=== PATIENT | female | born 1995 | race Caucasian/White ===

== ENCOUNTER 2016-12-09 10:38 | Emergency (ER) | payer BC, MEDICAID ==
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
[2016-12-09 11:56] VITALS: BP 134/70
--- NOTE | 2016-12-10 13:52 | EKG REPORT ---
SEVERITY:- NORMAL ECG - SINUS RHYTHM : Confirmed by: Ruth Patel MD 10-Dec-2016 13:51:22
== END 2016-12-09 11:55 | disposition home or self-care (01) ==
LOC: ER 10:38
DX: R42 Dizziness and giddiness (principal)
CPT/HCPCS: 93005; 93010; 99284

== ENCOUNTER 2017-04-02 19:38 | Inpatient (IN) | payer MEDICAID ==
[2017-04-02] MEDS ORDERED: RINGERS SOLUTION,LACTATED 300 ML IV ONE (20:23)
[2017-04-02] MEDS ORDERED: OXYTOCIN/NORMAL SALINE 20 UNIT/1,000 ML RTUINJ IV PRN (20:23)
[2017-04-02] MEDS ORDERED: RINGERS SOLUTION,LACTATED 1,000 ML IV PRN (20:23)
[2017-04-02 20:47] LABS: APPEARANCE,URINE SLIGHTLY-CLOUDY; BILIRUBIN,URINE NEGATIVE (NEGATIVE); GLUCOSE, URINE NEGATIVE (NEGATIVE); KETONES,URINE NEGATIVE (NEGATIVE); LEUKOCYTE ESTERASE,URINE NEGATIVE (NEGATIVE); NITRITE,URINE NEGATIVE (NEGATIVE); PROTEIN,URINE NEGATIVE (NEGATIVE); URINE SPECIFIC GRAVITY 1.028
[2017-04-02 20:50] LABS: ABSOLUTE EOSINOPHILS # (AUTO) 0.3 10^3/uL (0.0-0.6); ABSOLUTE MONOCYTES (AUTO) 0.6 10^3/uL (0.1-1.4); ABSOLUTE NEUT (AUTO) 7.7 10^3/uL (1.7-8.2); BASOPHILS % (AUTO) 0.3 % (0-2); EOSINOPHILS % (AUTO) 2.4 % (0-6); HEMATOCRIT 31.5 % (36.0-47.0); HEMOGLOBIN 10.7 g/dL (12.0-15.5); HGB HCT DIFFERENCE 0.6; LYMPHOCYTES % (AUTO) 25.7 % (13-45); MEAN CORPUSCULAR HEMOGLOBIN 29.2 pg (27.0-33.4); MEAN CORPUSCULAR HGB CONC 33.9 g/dL (32.0-36.0); MEAN CORPUSCULAR VOLUME 86 fl (80-97); MONOCYTES % (AUTO) 5.2 % (3-13); RED BLOOD COUNT 3.67 10^6/uL (3.72-5.28); RED CELL DISTRIBUTION WIDTH 15.1 % (11.5-14.0); SEGMENTED NEUTROPHILS % (AUTO) 66.4 % (42-78); WHITE BLOOD COUNT 11.7 10^3/uL (4.0-10.5)
[2017-04-02] MEDS ORDERED: OXYTOCIN/NORMAL SALINE 20 UNIT/1,000 ML RTUINJ ONE ×2 (20:59→21:58)
[2017-04-02 21:02] LABS: URINE BARBITURATES SCREEN NEGATIVE; URINE METHADONE SCREEN NEGATIVE; URINE OPIATES LOW NEGATIVE; URINE PHENCYCLIDINE SCREEN NEGATIVE
[2017-04-02] MEDS ORDERED: EPHEDRINE SULFATE INJ 50 MG/1 ML AMPULE ONE (21:54)
[2017-04-02] MEDS ORDERED: BUPIVACAINE HCL 0.25 % INJ/PF (2.5 MG/1 ML) 30 ML VIAL ONE (21:54)
[2017-04-02] MEDS ORDERED: FENTANYL/BUPIVACAINE/NS/PF 200 MCG/100 ML RTUINJ EPI ONE (21:54)
[2017-04-02] MEDS ORDERED: MISOPROSTOL 0.2 MG TABLET ONE (21:57)
[2017-04-02] MEDS ORDERED: LIDOCAINE 1% INJ-PF (10 MG/ML) 30 ML SDV ONE (21:57)
[2017-04-03] MEDS ORDERED: IBUPROFEN 800 MG TABLET ONE (00:57)
--- NOTE | 2017-04-03 02:02 | Delivery Summary ---
Del Sum A-C Datetime Report Generated by CPN: 04/03/2017 02:02 DELIVERY PERSONNEL DELIVERY PERSONNEL: [id number] Delivery Doctor:: Genoveva Maloney MD Labor and Delivery Nurse:: Luna Aguiar RN Nursery Nurse:: Radha Pineda RN Shore Worker/TWENTY ONE DEALER: Coleen Get, ST MATERNAL INFORMATION Delivery Anesthesia: Epidural Medications After Delivery: Pitocin Bolus-Please Comment; Pitocin Drip 20 Units/1000ml NSS Estimated Blood Loss (ml): 250 Maternal Complications: None Provider Comments: VFI delivered in ENRIKE presentation with no nuchal cord. Shoulders and body delivered without difficulty. cord doubly clamped and cut and to maternal abdomen for NRP. long cord with true knot noted. Placenta delivered intact spontaneously. FF at U. Good hemostasis post repair. Mother and baby stable upon provider leaving the room. LABOR SUMMARY EDC: 03/25/2017 00:00 No. Babies in Womb: 1 Attempted: No Labor Anesthesia: Epidural LABOR INFORMATION Reason for Induction: Post Dates Onset of Labor: 04/02/2017 21:18 Complete Dilatation: 04/03/2017 00:02 Oxytocin: Induction Group B Beta Strep: Negative Antibiotics # of Doses: 0 Antibiotics Time of Last Dose: N/A Name of Antibiotic Given: N/A Steroids Given: None Reason Steroids Not Administered: Not Applicable MEMBRANES Membranes Rupture Method: Spontaneous Rupture of Membranes: 04/02/2017 23:30 Length of Rupture (hr): 0.77 Amniotic Fluid Color: Clear Amniotic Fluid Amount: Moderate Amniotic Fluid Odor: Normal STAGES OF LABOR Stage 1 hr: 2 Stage 1 min: 44 Stage 2 hr: 0 Stage 2 min: 14 Stage 3 hr: 0 Stage 3 min: 4 Total Time in Labor hr: 3 Total Time in Labor min: 2 VAGINAL DELIVERY Episiotomy: None Laceration #1: Vaginal Laceration Extension #1: N/A Laceration Repair: Yes Laceration Repair Note: superficial vaginal laceration repaired for hemostasis with figure of right suture times one Sponge Count Correct: Yes Sharps Count Correct: Yes CSECTION DELIVERY Primary Indication: N/A Secondary Indication: N/A CSection Incidence: N/A Labor: N/A Elective: N/A CSection Incision: N/A BABY A INFORMATION Delivery Date/Time: 04/03/2017 00:16 Method of Delivery: Vaginal Born in Route : No : N/A Forceps: N/A Vacuum Extraction: N/A Shoulder Dystocia : No PRESENTATION/POSITION BABY A Presentation: Cephalic Cephalic Presentation: Vertex Vertex Position: Left Occipital Anterior Breech Presentation: N/A PLACENTA INFORMATION BABY A Placenta Delivery Time : 04/03/2017 00:20 Placenta Method of Delivery: Spontaneous Placenta Status: Delivered SCORES BABY A Heart Rate 1 min: >100 bpm Resp Effort 1 min: Good Cry Reflex Irritability 1 min: Cough or Sneeze or Pulls Away Muscle Tone 1 min: Active Motion Color 1 min: Blue/Pale SCORE 1 MIN: 8 Heart Rate 5 min: >100 bpm Resp Effort 5 min: Good Cry Reflex Irritability 5 min: Cough or Sneeze or Pulls Away Muscle Tone 5 min: Active Motion Color 5 min: Body [place], Extremities Blue SCORE 5 MIN: 9 INFORMATION BABY A Gestational Age at Delivery: 40.2 Gestational Status: Full Term- 39- 40.6 Weeks Infant Outcome : Liveborn Infant Condition : Stable Infant Sex: Female IDENTIFICATION BABY A Infant Verification Date/Time: 04/02/2017 00:47 ID Band Number: [id number] Mother's Name Verified: Yes RN Verifying Infant: Luna Atalek, Lisa Jackson WEIGHT/LENGTH BABY A Birthweight (gm): 3669 Infant Weight (lb): 8 Weight (oz): 1 Length (in): 21.00 Length (cm): 53.34 CORD INFORMATION BABY A No. Cord Vessels: 3 Nuchal Cord : N/A True Knot: 1 Cord Blood Taken: Yes-For Eval (Mom's Blood Type - or O+) Suction: Mouth; Nose ASSESSMENT BABY A Infant Complications: None Physical Findings at Delivery: Within Normal Limits Respirations: Appears Normal Skin to Skin: Yes Adjunct Faculty/ALS Called : No Care By: R Pineda, RNC Transferred To: Remains with Mother BABY B INFORMATION : N/A SIGNATURES Signature: Electronically signed by Genoveva Maloney MD ([facility]) on 04/03/2017 at 01:39 with User ID: [email or web address]
--- NOTE | 2017-04-03 02:18 | Admission Physical ---
Datetime Report Generated by CPN: 04/03/2017 02:17 CURRENT ADMISSION Chief Complaint: Scheduled Induction of Labor Indication for Induction: Post Dates Indication for Induction: Term, Intrauterine ; No Active Labor; Intact Membranes; Induction of Labor Admit Plan: Admit to Unit; Initiate Labor Protocol ALLERGIES Medication Allergies: No Medication Allergies: No Known Allergies (04/02/2017) Medication Allergies: No Known Allergies (12/09/2016) Latex: No Latex Allergies Food Allergies: none Environmental Allergies: none OBSTETRICAL HISTORY EDC: 03/25/2017 00:00 : 2 Para: 1 Term: 1 : 0 SAB: 1 IAB: 1 Ectopic: 0 Livin Cesareans: 0 VBACs: 0 Multiple Births: 0 Gestational Diabetes: No Rh Sensitization: No Incompetent Cervix: No KAREN: No Infertility: No ART Treatment: No Uterine Anomaly: No IUGR: No Hx Previous C/S: No Macrosomia: No Hx Loss/Stillborn: No PIH: No Hx : No Placenta Previa/Abruption: No Depression/PP Depression: No PTL/PROM: No Post Hemorrhage: No Current Procedures: Ultrasound; NST Obstetrical History Comments: G1: female 2015 approx 8 pounds G2: Current SEE RECORDS Alcohol: No Marijuana : No Cocaine: No Other Illicit Drugs: No Cigarettes: Never Smoker. [id number] MEDICAL HISTORY Diabetes: No Blood Transfusion: No Pulmonary Disease (Asthma, TB): No Breast Disease: No Hypertension: No Plate Grinder Surgery: No Heart Disease: No Hosp/Surgery: Yes Autoimmune Disorder: No Anesthetic Complications: No Kidney Disease: No Abnormal Pap Smear: No Neuro/Epilepsy: No Psychiatric Disorders: No Other Medical Diseases: No Hepatitis/Liver Disease: No Significant Family History: No Varicosities/Phlebitis: No Trauma/Violence : No Thyroid Dysfunction: No Medical History Comments: childbirth INFECTIOUS HISTORY Gonorrhea: No Genital Herpes: No Chlamydia: No Tuberculosis: No Syphilis: No Hepatitis: No HIV/AIDS Exposure: No Rash or Viral Illness: No HPV: No PHYSICAL EXAM General: Normal HEENT: Normal Neurologic: Normal Thyroid: Normal Heart: Normal Lungs: Normal Breast: Deferred Back: Normal Abdomen: Normal Genitourinary Exam: Normal Extremities: Normal DTRs: Normal Pelvic Type: Adequate Vital Signs: Reviewed VAGINAL EXAM Dilatation: 4 Effacement: 70 Station: -2 Contraction Comments: q 6min MEMBRANES Membranes: Intact Amniotic Fluid Color: Clear FETUS A EGA: 41.1 Monitoring: External US FHR- Baseline: 155 Variability: Moderate 6-25bpm Accelerations: 15X15 Decelerations: None FHR Category: Category I Estimated Weight (gm): 3894 Presentation: Vertex Admit Comment: 21yo at 41+1ega presents for scheduled IOL. 2cm at the office last week. Cvx on exam today is 4/70/-2. c/b Morbid obesity with BMI of 44. ECHO normal. Failed Early GTT - passed 3 hr GTT. also complicated by peridontal disease. Pelvis proven to 7#5oz. Pt desires epidural for pain management. CAT I FHR tracing. Pelvis adequate for RONALD and EFW approx 8#9oz. GBS negative. Will ensure SCDs intra and PLANS FOR LABOR AND DELIVERY Labor and Delivery: None Pain Management: Epidural Feeding Preference: Breast Benefit of Breast Feed Discussed: Yes Circumcision: N/A INFORMED CONSENT Informed Consent Obtained: Vaginal Delivery; Induction of Labor; Risks, Benefits and Alternatives Discussed Signature: with User ID: [email or web address]
[2017-04-03] MEDS ORDERED: PSEUDOEPHEDRINE HCL 30 MG TABLET PO PRN (03:26)
[2017-04-03] MEDS ORDERED: ACETAMINOPHEN WITH CODEINE #3 TABLET PO PRN ×2 (03:26)
[2017-04-03] MEDS ORDERED: PROMETHAZINE HCL 25 MG TABLET PO PRN (03:26)
[2017-04-03] MEDS ORDERED: MEASLES,MUMPS&RUBELLA VACC/PF 0.5 ML VIAL SUBCUT PRN (03:26)
[2017-04-03] MEDS ORDERED: ZOLPIDEM TARTRATE 5 MG TABLET PO PRN (03:26)
[2017-04-03] MEDS ORDERED: NA PHOS,M-B/NA PHOS,DI-BA (ADULT) 133 ML ENEMA PR PRN (03:26)
[2017-04-03] MEDS ORDERED: DIPH/PERTUSS(ACELL)/TETANUS VAC/PF 0.5 ML SYR (>=10YO) IM PRN (03:26)
[2017-04-03] MEDS ORDERED: BENZOCAINE/MENTHOL AEROSOL SPRAY 56 ML TOP PRN (03:26)
[2017-04-03] MEDS ORDERED: DIBUCAINE 1% OINTMENT 28 GM TP PRN (03:26)
[2017-04-03] MEDS ORDERED: PROMETHAZINE HCL INJ 25 MG/1 ML VIAL IV PRN (03:26)
[2017-04-03] MEDS ORDERED: PROMETHAZINE HCL 25 MG SUPP.RECT PR PRN (03:26)
[2017-04-03] MEDS ORDERED: ACETAMINOPHEN 650 MG SUPP.RECT PR PRN (03:26)
[2017-04-03] MEDS ORDERED: MAGNESIUM HYDROXIDE SUSP 30 ML UDCUP PO PRN (03:26)
[2017-04-03] MEDS ORDERED: GLYCERIN/WITCH HAZEL LEAF 1 EACH MED..PAD TP PRN (03:26)
[2017-04-03] MEDS ORDERED: DIPHENHYDRAMINE HCL 25 MG CAPSULE PO PRN (03:26)
[2017-04-03] MEDS ORDERED: OXYTOCIN/NORMAL SALINE 1,000 ML IV PRN (03:26)
[2017-04-03] MEDS ORDERED: MISOPROSTOL 0.2 MG TABLET PR ONE (03:33)
[2017-04-03] MEDS: IBUPROFEN 800 MG TABLET PO SCH ×3 (05:58→21:57)
[2017-04-03] MEDS ORDERED: PRENATAL VITAMIN W DHA CAPSULE PO ONE (09:14)
[2017-04-03] MEDS: DOCUSATE SODIUM 100 MG CAPSULE PO SCH ×2 (09:17→17:43)
[2017-04-03] MEDS: SENNOSIDES/DOCUSATE 8.6-50 MG 1 EACH TABLET PO SCH (09:18)
[2017-04-03] MEDS: FERROUS SULFATE 325 MG TABLET PO SCH ×2 (09:18→17:42)
[2017-04-03] MEDS: FAMOTIDINE 20 MG TABLET PO SCH ×2 (09:18→21:57)
[2017-04-03] MEDS: PRENATAL VITAMIN W DHA CAPSULE PO SCH (09:38)
--- NOTE | 2017-04-03 09:56 | PDOC PROGRESS REPORT ---
Subjective-OB Subjective: Post Delivery Day: 1 21 year old. Denies any needs at this time, states lochia is stable, pain well controlled, voiding without difficulty. Physical Exam (OB) Vital Signs: Temp Pulse Resp BP Pulse Ox 98.2 F 84 16 132/82 H 99 04/03/17 08:45 04/03/17 08:45 04/03/17 08:45 04/03/17 08:45 04/03/17 08:45 Intake & Output 04/02/17 04/03/17 04/04/17 06:59 06:59 06:59 Weight 140 kg - Lochia Lochia Amount: Small 10-25 ml Lochia Color: Rubra/Red - Abdomen Description: Soft, Round Hernia Present: No Fundal Description: Firm, Midline Fundal Height: u/u - u/2 Objective-Diagnostic Laboratory: 04/02/17 20:38 04/02/17 04/02/17 04/02/17 19:48 20:38 20:38 WBC 11.7 H RBC 3.67 L Hgb 10.7 L Hct 31.5 L MCV 86 MCH 29.2 MCHC 33.9 RDW 15.1 H Plt Count 249 Seg Neutrophils % 66.4 Lymphocytes % 25.7 Monocytes % 5.2 Eosinophils % 2.4 Basophils % 0.3 Absolute Neutrophils 7.7 Absolute Lymphocytes 3.0 Absolute Monocytes 0.6 Absolute Eosinophils 0.3 Absolute Basophils 0.0 Urine Color YELLOW Urine Appearance SLIGHTLY-CLOUDY Urine pH 6.0 Ur Specific [place] 1.028 Urine Protein NEGATIVE Urine Glucose (UA) NEGATIVE Urine Ketones NEGATIVE Urine Blood SMALL H Urine Nitrite NEGATIVE Ur Leukocyte Esterase NEGATIVE Blood Type A NEGATIVE Antibody Screen NEGATIVE Assessment and Plan(PN) - Assessment and Plan (1) Acute blood loss anemia Is this a current diagnosis for this admission?: Yes Plan: ferrous sulfate increase dietary iron (2) Gestational hypertension Qualifiers: Trimester: third trimester Qualified Code(s): O13.3 - Gestational [ -induced] hypertension without significant proteinuria, third trimester Is this a current diagnosis for this admission?: Yes (3) Vaginal delivery Is this a current diagnosis for this admission?: Yes Plan: routine pp care - Time Spent with Patient Time with patient: Less than 15 minutes Critical Time spent with patient: Less than 15 minutes Medications reviewed and adjusted accordingly: Yes - Disposition Anticipated Discharge: Home Within: within 24 hours
[2017-04-03] MEDS ORDERED: PRENATAL VITAMIN W-O CA NO5/FE FUMARATE/FA CAPSULE PO SCH (10:00)
[2017-04-04] MEDS: IBUPROFEN 800 MG TABLET PO SCH ×3 (05:35→22:14)
[2017-04-04 08:08] LABS: HEMATOCRIT 28.6 % (36.0-47.0); HEMOGLOBIN 9.5 g/dL (12.0-15.5); HGB HCT DIFFERENCE -0.1; MEAN CORPUSCULAR HEMOGLOBIN 28.9 pg (27.0-33.4); MEAN CORPUSCULAR HGB CONC 33.1 g/dL (32.0-36.0); MEAN CORPUSCULAR VOLUME 87 fl (80-97); RED BLOOD COUNT 3.29 10^6/uL (3.72-5.28); RED CELL DISTRIBUTION WIDTH 15.7 % (11.5-14.0); WHITE BLOOD COUNT 9.5 10^3/uL (4.0-10.5)
[2017-04-04] MEDS: SENNOSIDES/DOCUSATE 8.6-50 MG 1 EACH TABLET PO SCH (09:14)
[2017-04-04] MEDS: FERROUS SULFATE 325 MG TABLET PO SCH ×2 (09:14→17:53)
[2017-04-04] MEDS: FAMOTIDINE 20 MG TABLET PO SCH ×2 (09:14→22:14)
[2017-04-04] MEDS: DOCUSATE SODIUM 100 MG CAPSULE PO SCH ×2 (09:14→17:53)
[2017-04-04] MEDS: PRENATAL VITAMIN W DHA CAPSULE PO SCH (09:15)
--- NOTE | 2017-04-04 10:31 | PDOC PROGRESS REPORT ---
Subjective-OB Subjective: Post Delivery Day: 2 21 year old. Denies any needs at this time, states lochia is stable , pain well controlled, voiding without difficulty. Physical Exam (OB) Vital Signs: Temp Pulse Resp BP Pulse Ox 98.2 F 75 20 133/74 H 99 04/04/17 07:33 04/04/17 07:33 04/04/17 07:33 04/04/17 07:33 04/04/17 07:33 Intake & Output 04/03/17 04/04/17 04/05/17 06:59 06:59 06:59 Intake Total 800 Balance 800 Weight 140 kg - Lochia Lochia Amount: Scant < 10 ml Lochia Color: Rubra/Red - Abdomen Description: Soft, Round Hernia Present: No Fundal Description: Firm, Midline Fundal Height: u/u - u/2 Objective-Diagnostic Laboratory: 04/04/17 07:20 04/04/17 04/04/17 07:20 07:20 WBC 9.5 RBC 3.29 L Hgb 9.5 L Hct 28.6 L MCV 87 MCH 28.9 MCHC 33.1 RDW 15.7 H Plt Count 205 Blood Type A NEGATIVE Assessment and Plan(PN) - Assessment and Plan (1) Acute blood loss anemia Is this a current diagnosis for this admission?: Yes Plan: ferrous sulfate increase dietary iron (2) Gestational hypertension Qualifiers: Trimester: third trimester Qualified Code(s): O13.3 - Gestational [ -induced] hypertension without significant proteinuria, third trimester Is this a current diagnosis for this admission?: Yes Plan: montior bp and s/sx (3) Vaginal delivery Is this a current diagnosis for this admission?: Yes Plan: routine pp care - Time Spent with Patient Time with patient: Less than 15 minutes Critical Time spent with patient: Less than 15 minutes Medications reviewed and adjusted accordingly: Yes - Disposition Anticipated Discharge: Home Within: within 24 hours
[2017-04-05] MEDS: IBUPROFEN 800 MG TABLET PO SCH ×2 (06:16→13:21)
[2017-04-05 08:15] VITALS: BP 132/74
[2017-04-05] MEDS: SENNOSIDES/DOCUSATE 8.6-50 MG 1 EACH TABLET PO SCH (09:21)
[2017-04-05] MEDS: PRENATAL VITAMIN W DHA CAPSULE PO SCH (09:21)
[2017-04-05] MEDS: DOCUSATE SODIUM 100 MG CAPSULE PO SCH (09:21)
[2017-04-05] MEDS: FERROUS SULFATE 325 MG TABLET PO SCH (09:21)
[2017-04-05] MEDS: FAMOTIDINE 20 MG TABLET PO SCH (09:22)
--- NOTE | 2017-04-05 12:57 | PDOC DISCHARGE SUMMARY ---
Final Diagnosis Discharge Date: 04/05/17 - Final Diagnosis (1) Anemia complicating , third trimester Is this a current diagnosis for this admission?: Yes (2) Gestational hypertension Is this a current diagnosis for this admission?: Yes (3) Vaginal delivery Is this a current diagnosis for this admission?: Yes Discharge Data - Discharge Medication Home Medications: Vitamin [-U Multiple Vitamin Capsule] 1 cap PO DAILY #0 capsule 06/24/15 Docusate Sodium [Colace 100 mg Capsule] 100 mg PO BID #60 capsule 04/05/17 Ferrous Sulfate [Feosol 325 mg Tablet] 325 mg PO BID #60 tablet 04/05/17 Ibuprofen [Motrin 800 mg Tablet] 800 mg PO Q8HP PRN #30 tablet 04/05/17 Reason(s) for Admission: Induction of Labor Procedures: NST, Ultrasound Intrapartum Procedure(s): Spontaneous Vaginal Delivery Complication(s): Laceration-Vaginal Laceration-Degree: 1st - Diagnosis Test Laboratory: Temp Pulse Resp BP Pulse Ox 98.1 F 82 20 132/74 H 98 04/05/17 10:41 04/05/17 10:41 04/05/17 10:41 04/05/17 07:28 04/05/17 10:41 04/02/17 04/02/17 04/04/17 19:48 20:38 07:20 RBC 3.67 L 3.29 L Hgb 10.7 L 9.5 L Hct 31.5 L 28.6 L Urine Opiates Screen NEGATIVE - Discharge information/Instructions Discharge Activity: Activity As Tolerated, Balance Activity w/Rest, No Lifting Over 10 Pounds, Pelvic Rest, Slowly Increase Activity, No tub bath Discharge Diet: As Tolerated, Regular Disposition: HOME, SELF-CARE Follow up with: [facility] in: 5, Days - blood pressure check
== END 2017-04-05 14:16 | disposition home or self-care (01) | DRG 775 ==
LOC: LR 19:38 → 2S 04-03 02:16
PROVIDERS: ADMIT Student in an Organized Health Care Education/Training Program; ATTEND Student in an Organized Health Care Education/Training Program
PROC: 10E0XZZ Delivery of Products of Conception, External Approach (ICD-10-PCS; 2017-04-02)
PROC: 4A1HXCZ Monitoring of Products of Conception, Cardiac Rate, External Approach (ICD-10-PCS; 2017-04-02)
PROC: 10E0XZZ Delivery of Products of Conception, External Approach (ICD-10-PCS; principal; 2017-04-03)
PROC: 0HQ9XZZ Repair Perineum Skin, External Approach (ICD-10-PCS; 2017-04-03)
PROC: 3E0234Z Introduction of Serum, Toxoid and Vaccine into Muscle, Percutaneous Approach (ICD-10-PCS; 2017-04-04)
DX: O13.4 Gestational [pregnancy-induced] hypertension without significant proteinuria, complicating childbirth (principal); D62 Acute posthemorrhagic anemia; Z68.41 Body mass index [BMI] 40.0-44.9, adult; O99.02 Anemia complicating childbirth; O70.0 First degree perineal laceration during delivery; O48.0 Post-term pregnancy; O26.893 Other specified pregnancy related conditions, third trimester; O69.2XX0 Labor and delivery complicated by other cord entanglement, with compression, not applicable or unspecified; Z67.11 Type A blood, Rh negative; E66.01 Morbid (severe) obesity due to excess calories; Z3A.41 41 weeks gestation of pregnancy; Z37.0 Single live birth
CPT/HCPCS: 36415; 80307; 81005; 85025; 85027; 85461; 86592; 86850; 86900; 86901; J2590; J2790; J3490

== ENCOUNTER 2019-01-06 14:32 | Outpatient (CLI) | payer MEDICAID ==
--- NOTE | 2019-01-06 15:10 | Non Stress Test Report ---
Non Stress Test Datetime Report Generated by CPN: 01/06/2019 15:10 DEMOGRAPHIC EGA NST: 35.4 INDICATION Indication for Study: Ordered by Provider MONITORING Monitor Explained: Monitor Explained; Test Explained; Patient Verbalized Understanding Time on Monitor: 01/06/2019 14:41 Time off Monitor: 01/06/2019 15:04 NST Duration: 23 NST INTERVENTIONS NST Interventions: PO Hydration Physician Notified NST: K.Yen, CNM BABY A: [id number] BABY A Movement : Present Contraction Frequency : 0 FHR Baseline : 150 Accelerations : 15X15 Decelerations : None Variability : Moderate 6-25bpm NST Review: Meets Criteria for Reactive NST NST Review and Verified By : Janette Pop RNC NST Results: Reactive NST REPORT Report Trigger: Send Report
== END 2019-01-06 15:06 | disposition home or self-care (01) ==
LOC: LC 14:32
PROVIDERS: ATTEND Obstetrics & Gynecology
DX: Z34.93 Encounter for supervision of normal pregnancy, unspecified, third trimester (principal)
CPT/HCPCS: 59025

== ENCOUNTER 2019-01-16 09:42 | Inpatient (IN) | payer MEDICAID ==
[2019-01-16] MEDS ORDERED: RINGERS SOLUTION,LACTATED 1,000 ML IV PRN (10:14)
[2019-01-16 10:22] LABS: ABSOLUTE LYMPHOCYTES (AUTO) 1.2 10^3/uL (0.5-4.7); ABSOLUTE MONOCYTES (AUTO) 0.3 10^3/uL (0.1-1.4); ABSOLUTE NEUT (AUTO) 4.6 10^3/uL (1.7-8.2); BASOPHILS % (AUTO) 0.4 % (0-2); EOSINOPHILS % (AUTO) 0.2 % (0-6); HEMATOCRIT 34.6 % (36.0-47.0); HEMOGLOBIN 11.7 g/dL (12.0-15.5); MEAN CORPUSCULAR HEMOGLOBIN 29.5 pg (27.0-33.4); MEAN CORPUSCULAR HGB CONC 33.8 g/dL (32.0-36.0); MEAN CORPUSCULAR VOLUME 87 fl (80-97); MONOCYTES % (AUTO) 4.9 % (3-13); PLATELET COUNT 186 10^3/uL (150-450); RED BLOOD COUNT 3.96 10^6/uL (3.72-5.28); RED CELL DISTRIBUTION WIDTH 15.1 % (11.5-14.0); SEGMENTED NEUTROPHILS % (AUTO) 74.5 % (42-78); TOTAL CELLS COUNTED % (AUTO) 100 %; WHITE BLOOD COUNT 6.1 10^3/uL (4.0-10.5)
[2019-01-16 10:33] LABS: APPEARANCE,URINE SLIGHTLY-CLOUDY; BILIRUBIN,URINE NEGATIVE (NEGATIVE); COLOR,URINE YELLOW; GLUCOSE, URINE NEGATIVE (NEGATIVE); KETONES,URINE NEGATIVE (NEGATIVE); LEUKOCYTE ESTERASE,URINE SMALL (NEGATIVE); NITRITE,URINE NEGATIVE (NEGATIVE); PROTEIN,URINE NEGATIVE (NEGATIVE); URINE SPECIFIC GRAVITY 1.013; UROBILINOGEN,URINE NEGATIVE mg/dL (<2.0)
[2019-01-16 10:47] LABS: ALBUMIN 3.6 g/dL (3.5-5.0); ALKALINE PHOSPHATASE 117 U/L (38-126); ANION GAP 10 (5-19); ASPARTATE AMINO TRANSFERASE 27 U/L (14-36); BILIRUBIN,DIRECT 0.3 mg/dL (0.0-0.4); BILIRUBIN,TOTAL 0.4 mg/dL (0.2-1.3); BLOOD UREA NITROGEN 5 mg/dL (7-20); CARBON DIOXIDE 22 mmol/L (22-30); CHLORIDE 103 mmol/L (98-107); GLUCOSE 116 mg/dL (75-110); POTASSIUM 3.9 mmol/L (3.6-5.0); URIC ACID 4.9 mg/dL (2.5-6.2)
[2019-01-16 11:00] LABS: URINE AMPHETAMINES SCREEN NEGATIVE; URINE BARBITURATES SCREEN NEGATIVE; URINE BENZODIAZEPINES SCREEN NEGATIVE; URINE COCAINE SCREEN NEGATIVE; URINE MARIJUANA (THC) SCREEN NEGATIVE; URINE METHADONE SCREEN NEGATIVE; URINE PHENCYCLIDINE SCREEN NEGATIVE
[2019-01-16] MEDS ORDERED: OXYTOCIN/NORMAL SALINE 20 UNIT/1,000 ML RTUINJ ONE ×2 (12:25→22:01)
[2019-01-16] MEDS ORDERED: LIDOCAINE 1% INJ-PF (10 MG/ML) 30 ML SDV ONE (12:25)
[2019-01-16] MEDS ORDERED: MISOPROSTOL 0.2 MG TABLET ONE (12:25)
[2019-01-16] MEDS ORDERED: OXYTOCIN 10 UNIT/ML VIAL ONE (12:25)
[2019-01-16] MEDS ORDERED: OXYTOCIN/NORMAL SALINE 20 UNIT/1,000 ML RTUINJ IV PRN ×2 (12:36→21:38)
--- NOTE | 2019-01-16 13:11 | Admission Physical ---
Datetime Report Generated by CPN: 01/16/2019 13:10 CURRENT ADMISSION Chief Complaint: Scheduled Induction of Labor Indication for Induction: Other Indication for Induction- Other: cholestasis of Admit Impression : Term, Intrauterine Admit Plan: Admit to Unit; Initiate Labor Induction Protocol ALLERGIES Medication Allergies: No Medication Allergies: No Known Allergies (04/02/2017) Latex: No Latex Allergies OBSTETRICAL HISTORY EDC: 02/06/2019 00:00 : 3 Para: 2 Gestational Diabetes: No Rh Sensitization: No Incompetent Cervix: No KAREN: No Infertility: No ART Treatment: No Uterine Anomaly: No IUGR: No Hx Previous C/S: No Macrosomia: No Hx Loss/Stillborn: No PIH: No Hx : No Placenta Previa/Abruption: No Depression/PP Depression: No PTL/PROM: No Post Hemorrhage: No Current Procedures: Ultrasound; NST Obstetrical History Comments: G1-06/22/15, full term vaginal G2-04/03/17, full term, vaginal G3-Current SEE RECORDS Alcohol: No Marijuana : No Cocaine: No Other Illicit Drugs: No Cigarettes: Never Smoker. [id number] MEDICAL HISTORY Diabetes: No Blood Transfusion: No Pulmonary Disease (Asthma, TB): No Breast Disease: No Hypertension: No Drug Safety Specialist Surgery: No Heart Disease: No Hosp/Surgery: No Autoimmune Disorder: No Anesthetic Complications: No Kidney Disease: No Abnormal Pap Smear: No Neuro/Epilepsy: No Psychiatric Disorders: No Other Medical Diseases: No Hepatitis/Liver Disease: No Significant Family History: No Varicosities/Phlebitis: No Trauma/Violence : No Thyroid Dysfunction: No INFECTIOUS HISTORY Gonorrhea: No Genital Herpes: No Chlamydia: No Tuberculosis: No Syphilis: No Hepatitis: No HIV/AIDS Exposure: No Rash or Viral Illness: No HPV: No PHYSICAL EXAM General: Normal HEENT: Normal Neurologic: Normal Thyroid: Deferred Heart: Normal Lungs: Normal Breast: Deferred Back: Normal Abdomen: Normal Genitourinary Exam: Normal Extremities: Normal DTRs: Deferred Pelvic Type: Adequate Physical Exam Comments: pelvis proven to 8#1 Vital Signs: Reviewed VAGINAL EXAM Dilatation: 1 Effacement: 50 Station: -2 Contraction Comments: rare MEMBRANES Membranes: Intact FETUS A EGA: 37.0 Monitoring: External US FHR- Baseline: 135 Variability: Moderate 6-25bpm Accelerations: 15X15 Decelerations: None FHR Category: Category I Estimated Weight (gm): 3200 Presentation: Vertex Admit Comment: at 37w by LMP c/w 12w sono admitted for cholestasis of at term, GBS neg, Rh neg. parikh balloon placed without difficulty. pitocin started. P: continue IOL, anticipate PLANS FOR LABOR AND DELIVERY Labor and Delivery: None Pain Management: Natural Feeding Preference: Breast Benefit of Breast Feed Discussed: Yes Circumcision: N/A INFORMED CONSENT Assignment: Rogelio Fraser MD Signature: with User ID: [email or web address] : with User ID: [email or web address]
[2019-01-16] MEDS ORDERED: MEASLES,MUMPS&RUBELLA VACC/PF 0.5 ML VIAL SUBCUT PRN (21:38)
[2019-01-16] MEDS ORDERED: ACETAMINOPHEN 650 MG SUPP.RECT PR PRN (21:38)
[2019-01-16] MEDS ORDERED: ACETAMINOPHEN WITH CODEINE #3 TABLET PO PRN (21:38)
[2019-01-16] MEDS ORDERED: BENZOCAINE/MENTHOL AEROSOL SPRAY 56 ML TOP PRN (21:38)
[2019-01-16] MEDS ORDERED: GLYCERIN/WITCH HAZEL LEAF 1 EACH MED..WIPE TP PRN (21:38)
[2019-01-16] MEDS ORDERED: PROMETHAZINE HCL INJ 25 MG/1 ML VIAL IV PRN (21:38)
[2019-01-16] MEDS ORDERED: PROMETHAZINE HCL 25 MG TABLET PO PRN (21:38)
[2019-01-16] MEDS ORDERED: PROMETHAZINE HCL 25 MG SUPP.RECT PR PRN (21:38)
[2019-01-16] MEDS ORDERED: NA PHOS,M-B/NA PHOS,DI-BA (ADULT) 133 ML ENEMA PR PRN (21:38)
[2019-01-16] MEDS ORDERED: DIPH/PERTUSS(ACELL)/TETANUS VAC/PF 0.5 ML SYR (>=10YO) IM PRN (21:38)
[2019-01-16] MEDS ORDERED: PSEUDOEPHEDRINE HCL 30 MG TABLET PO PRN (21:38)
[2019-01-16] MEDS ORDERED: MAGNESIUM HYDROXIDE SUSP 30 ML UDCUP PO PRN (21:38)
[2019-01-16] MEDS ORDERED: ZOLPIDEM TARTRATE 5 MG TABLET PO PRN (21:38)
[2019-01-16] MEDS ORDERED: DIBUCAINE 1% OINTMENT 56 GM TP PRN (21:38)
[2019-01-16] MEDS ORDERED: DIPHENHYDRAMINE HCL 25 MG CAPSULE PO PRN (21:38)
[2019-01-17] MEDS ORDERED: IBUPROFEN 800 MG TABLET ONE (06:42)
[2019-01-17] MEDS: IBUPROFEN 800 MG TABLET PO SCH ×4 (07:18→22:40)
--- NOTE | 2019-01-17 07:31 | Warning Signs in Babies ---
VOD Warning Signs Datetime Report Generated by [facility]: 01/17/2019 07:31 VOD#608 -Warning Signs in Babies: Viewed with Parent(s)/Family (01/17/2019 06:42:Antoinette Rivera RN)
[2019-01-17 07:33] LABS: HEMATOCRIT 30.7 % (36.0-47.0); HEMOGLOBIN 10.4 g/dL (12.0-15.5); MEAN CORPUSCULAR HEMOGLOBIN 29.7 pg (27.0-33.4); MEAN CORPUSCULAR HGB CONC 33.8 g/dL (32.0-36.0); MEAN CORPUSCULAR VOLUME 88 fl (80-97); PLATELET COUNT 183 10^3/uL (150-450); RED CELL DISTRIBUTION WIDTH 15.5 % (11.5-14.0); WHITE BLOOD COUNT 8.1 10^3/uL (4.0-10.5)
[2019-01-17] MEDS: FERROUS SULFATE 325 MG TABLET PO SCH ×2 (10:25→17:19)
[2019-01-17] MEDS: FAMOTIDINE 20 MG TABLET PO SCH ×3 (10:25→22:39)
[2019-01-17] MEDS: PRENATAL VITAMIN W DHA CAPSULE PO SCH (10:25)
[2019-01-17] MEDS: DOCUSATE SODIUM 100 MG CAPSULE PO SCH ×2 (10:25→17:19)
[2019-01-17] MEDS: SENNOSIDES/DOCUSATE 8.6-50 MG 1 EACH TABLET PO SCH (10:25)
[2019-01-18] MEDS: IBUPROFEN 800 MG TABLET PO SCH (06:57)
--- NOTE | 2019-01-18 09:50 | PDOC PROGRESS REPORT ---
Subjective-OB Progress Note for:: 01/18/19 Subjective: Doing well, ready to go home, baby in room, Physical Exam (OB) Vital Signs: Temp Pulse Resp BP Pulse Ox 98.0 F 83 18 140/80 H 99 01/17/19 08:27 01/17/19 08:27 01/17/19 08:27 01/17/19 08:27 01/17/19 08:27 Intake & Output 01/17/19 01/18/19 01/19/19 06:59 06:59 06:59 Intake Total 300 Balance 300 Weight 132.9 kg - PIH/Pre-Eclampsia Clonus: Negative Headache: Absent Epigastric Pain: No Visual Changes: No - Lochia Lochia Amount: Scant < 10 ml Lochia Color: Rubra/Red - Abdomen Description: Soft Hernia Present: No Fundal Description: Firm, Midline Fundal Height: u/u - u/2 Objective-Diagnostic Laboratory: 01/17/19 06:59 01/16/19 10:02 01/17/19 06:59 Blood Type A NEGATIVE Assessment and Plan(PN) - Assessment and Plan (1) Rh negative, delivered, current hospitalization Is this a current diagnosis for this admission?: Yes (2) Gestational hypertension Qualifiers: Trimester: third trimester Qualified Code(s): O13.3 - Gestational [-induced] hypertension without significant proteinuria, third trimester Is this a current diagnosis for this admission?: Yes (3) Vaginal delivery Is this a current diagnosis for this admission?: Yes (4) Acute blood loss anemia Is this a current diagnosis for this admission?: Yes - Time Spent with Patient Time with patient: Less than 15 minutes Medications reviewed and adjusted accordingly: Yes - Disposition Anticipated Discharge: Home Within: within 24 hours
--- NOTE | 2019-01-18 09:54 | PDOC DISCHARGE SUMMARY ---
Final Diagnosis Discharge Date: 01/18/19 - Final Diagnosis (1) Rh negative, delivered, current hospitalization Is this a current diagnosis for this admission?: Yes (2) Gestational hypertension Is this a current diagnosis for this admission?: Yes (3) Vaginal delivery Is this a current diagnosis for this admission?: Yes (4) Acute blood loss anemia Is this a current diagnosis for this admission?: Yes Discharge Data - Discharge Medication Home Medications: Vitamin [-U Multiple Vitamin Capsule] 1 cap PO DAILY #0 capsule 06/24/15 Ferrous Sulfate [Feosol 325 mg Tablet] 325 mg PO BID #60 tablet 04/05/17 Gestational Age: 37 Reason(s) for Admission: Induction of Labor, [facility] Procedures: NST, Ultrasound Intrapartum Procedure(s): Spontaneous Vaginal Delivery - [place] Data Baby 1 Female Home with Mother: Yes Complications: No - Diagnosis Test Laboratory: Temp Pulse Resp BP Pulse Ox 98.0 F 83 18 140/80 H 99 01/17/19 08:27 01/17/19 08:27 01/17/19 08:27 01/17/19 08:27 01/17/19 08:27 01/16/19 01/16/19 01/17/19 10:02 10:02 06:59 RBC 3.96 3.50 L Hgb 11.7 L 10.4 L Hct 34.6 L 30.7 L Urine Opiates Screen NEGATIVE - Discharge information/Instructions Discharge Activity: Activity As Tolerated, No Lifting Over 10 Pounds, Pelvic Rest Discharge Diet: As Tolerated, Regular Disposition: HOME, SELF-CARE Follow up with: [facility] in: 1, Weeks
[2019-01-18] MEDS: FAMOTIDINE 20 MG TABLET PO SCH (10:32)
[2019-01-18] MEDS: PRENATAL VITAMIN W DHA CAPSULE PO SCH (10:32)
[2019-01-18] MEDS: DOCUSATE SODIUM 100 MG CAPSULE PO SCH (10:32)
[2019-01-18] MEDS: FERROUS SULFATE 325 MG TABLET PO SCH (10:32)
[2019-01-18] MEDS: SENNOSIDES/DOCUSATE 8.6-50 MG 1 EACH TABLET PO SCH (10:32)
[2019-01-18 11:39] VITALS: BP 145/85
--- NOTE | 2019-01-22 08:20 | Delivery Summary ---
Del Sum A-C Datetime Report Generated by CPN: 01/22/2019 08:19 DELIVERY PERSONNEL DELIVERY PERSONNEL: [id number] Delivery Doctor:: Rogelio Fraser MD Labor and Delivery Nurse:: Antoinette Rivera, nursing staffing coordinator Nurse:: Isaura Ding, RN Die Press Operator/SUPERINTENDENT RENTING MANAGING: Coleen Guslor, ST MATERNAL INFORMATION Delivery Anesthesia: None Medications After Delivery: Pitocin Drip 20 Units/1000ml NSS Delivery QBL: 100 Maternal Complications: None LABOR SUMMARY EDC: 02/06/2019 00:00 No. Babies in Womb: 1 Attempted: No Labor Anesthesia: None LABOR INFORMATION Reason for Induction: Not Applicable Onset of Labor: 01/16/2019 15:57 Complete Dilatation: 01/16/2019 21:26 Oxytocin: Induction Group B Beta Strep: negative Antibiotics # of Doses: 0 Steroids Given: None Reason Steroids Not Administered: Not Applicable MEMBRANES Membranes Rupture Method: Artificial Rupture of Membranes: 01/16/2019 15:57 Length of Rupture (hr): 5.57 Amniotic Fluid Color: Clear Amniotic Fluid Amount: Moderate Amniotic Fluid Odor: Normal STAGES OF LABOR Stage 1 hr: 5 Stage 1 min: 29 Stage 2 hr: 0 Stage 2 min: 5 Stage 3 hr: 0 Stage 3 min: 3 Total Time in Labor hr: 5 Total Time in Labor min: 37 VAGINAL DELIVERY Episiotomy: None Laceration #1: None Laceration Extension #1: N/A BABY A INFORMATION Infant Delivery Date/Time: 01/16/2019 21:31 Method of Delivery: Vaginal Born in Route : No : N/A Forceps: N/A Vacuum Extraction: N/A Shoulder Dystocia : No PRESENTATION/POSITION BABY A Presentation: Cephalic Cephalic Presentation: N/A Vertex Position: Direct OA Breech Presentation: N/A PLACENTA INFORMATION BABY A Placenta Delivery Time : 01/16/2019 21:34 Placenta Method of Delivery: Spontaneous Placenta Method of Delivery: Spontaneous Placenta Status: Delivered SCORES BABY A Heart Rate 1 min: >100 bpm Resp Effort 1 min: Good Cry Reflex Irritability 1 min: Cough or Sneeze or Pulls Away Muscle Tone 1 min: Active Motion Color 1 min: Body Dawson, Extremities Blue Resuscitation Effort 1 min: Tactile Stimulation SCORE 1 MIN: 9 Heart Rate 5 min: >100 bpm Resp Effort 5 min: Good Cry Reflex Irritability 5 min: Cough or Sneeze or Pulls Away Muscle Tone 5 min: Active Motion Color 5 min: Body Dawson, Extremities Blue Resuscitation Effort 5 min: Tactile Stimulation SCORE 5 MIN: 9 INFANT INFORMATION BABY A Gestational Age at Delivery: 37.0 Gestational Status: Early Term- 37- 38.6 Weeks Outcome : Liveborn Condition : Stable Infant Sex: Female IDENTIFICATION BABY A Infant Verification Date/Time: 01/16/2019 21:40 ID Band Number: [id number] Mother's Name Verified: Yes RN Verifying : Neo Rivera RN and Yazmin Ding RN WEIGHT/LENGTH BABY A Birthweight (gm): 3517 Infant Weight (lb): 7 Weight (oz): 12 Length (in): 19.50 Length (cm): 49.53 CORD INFORMATION BABY A No. Cord Vessels: 3 Nuchal Cord : Around Neck x1, Loose Cord Blood Taken: Yes-For Eval (Mom's Blood Type - or O+) Suction: None ASSESSMENT BABY A Complications: None Physical Findings at Delivery: Within Normal Limits Infant Respirations: Appears Normal Skin to Skin: Yes Skin to Skin: Yes Skin to Skin: Yes Skin to Skin Time (min): 60 Book Store Associate/ALS Called : No Transferred To: Remains with Mother BABY B INFORMATION : N/A SIGNATURES Signature: with User ID: [email or web address]
== END 2019-01-18 13:30 | disposition home or self-care (01) | DRG 805 ==
LOC: LR 09:42 → 2S 01-17 08:31
PROVIDERS: ADMIT Obstetrics & Gynecology Gynecology; ATTEND Obstetrics & Gynecology Gynecology
PROC: 10E0XZZ Delivery of Products of Conception, External Approach (ICD-10-PCS; principal; 2019-01-16)
PROC: 3E033VJ Introduction of Other Hormone into Peripheral Vein, Percutaneous Approach (ICD-10-PCS; 2019-01-16)
PROC: 10907ZC Drainage of Amniotic Fluid, Therapeutic from Products of Conception, Via Natural or Artificial Opening (ICD-10-PCS; 2019-01-16)
DX: O13.4 Gestational [pregnancy-induced] hypertension without significant proteinuria, complicating childbirth (principal); K83.1 Obstruction of bile duct; Z37.0 Single live birth; D62 Acute posthemorrhagic anemia; O26.893 Other specified pregnancy related conditions, third trimester; O90.81 Anemia of the puerperium; O26.62 Liver and biliary tract disorders in childbirth; Z67.11 Type A blood, Rh negative; O69.81X0 Labor and delivery complicated by cord around neck, without compression, not applicable or unspecified; Z3A.37 37 weeks gestation of pregnancy
CPT/HCPCS: 36415; 80053; 80307; 81005; 83615; 84550; 85025; 85027; 85461; 86592; 86850; 86870; 86900; 86901; J2590; J2790; J3490